=== PATIENT | male | born 1960 | race Caucasian/White ===

== ENCOUNTER 2019-02-06 15:59 | Inpatient (IN) | payer OTHER ==
[~2019-02-06] VITALS: Ht 182.9 cm; Wt 89.3 kg
[2019-02-06 16:10] LABS: Chloride (POC) 92 mmol/L (98-108); Creatinine (POC) 1.3 mg/dL (0.8-1.3); Glucose (ISTAT POC) 109 mg/dL (70-99); Sodium (POC) 127 mmol/L (135-148); Total CO2 (POC) 28 mmol/L (21-32)
--- NOTE | 2019-02-06 17:58 | NUR ---
ADMIT TO ICU 12, VIA BED, FROM [facility]. EMS BROUGHT PATIENT TO THE ER FOR PERSISTENT N/V, WEAKNESS AND CHEST PAIN INTERMITTENTLY THE PAST 3 DAYS; PATIENT ASSESSED BY ER PHYSICIAN AND CARDIO-INTERVENTIONALIST; DIRECTLY TAKEN TO HEART CENTER. STENT PLACED TO LAD; REMAINS ON AGGRASTAT DRIP AT 15ML/HR AND TO RECEIVE LITER OF NS. POC IS TO TAKE PATIENT, IN AM, FOR REPEAT ANGIOGRAM; DR. MARTÍNEZ HOPING THAT VESSEL WILL GET BETTER FLOW (WAS 100% OCCLUDED). PATIENT AND FAMILY ORIENTED TO ROOM AND PROTOCOLS. PATIENT VOIDED 350ML OF LT YELLOW URINE. UNDERLYING NAUSEA BUT NO CURRENT CHESTPAIN.
--- NOTE | 2019-02-06 18:50 | NUR ---
PORTABLE CXR DONE.
--- NOTE | 2019-02-06 18:55 | NUR ---
DR. IRVIN IN TO DISCUSS POC, ETC WITH PATIENT WELL FAMILY. PATIENT MAY EAT TIL 2400 THEN DIET TO REDUCE TO CL'S AND AT 0800 PO MEDS WITH SIPS WATER. TO HAVE ANOTHER ANGIOGRAM. CURRENTLY TR BAND SITE INTACT; CUFF INFLATED WITH 10CC/AIR; ARMBOARD IN PLACE. WILL REPORT TO ONCOMING RN.
--- NOTE | 2019-02-06 19:30 | NUR ---
[place] of Care: Patient alert and oriented x4, sitting upright in bed visiting with family at bedside. Denies chest pain, pressure, SOB, or dyspnea at this time. O2-96-98% on RA, VSS. Heart rhythm shows NSR-SIT, rate 90's-105. Peripheral IV's x2 patent and intact. NS infusing at 200ml/hr, x1 liter only. Agrastat gtt infusing at 15ml/hr at shift change, but this order D/C'd in the EMAR. Call placed to Dr. Gupta to confirm Agrastat gtt. Received orders to keep Agrastat gtt infusing throughout shift, D/c subcutaneous heparin, and for GI cocktail q6 prn as patient is complaining of GERD/reflux pain/discomfort. Rt radial TR band in place, no s/s of bleeding/hematoma noted. Rt hand color, temp, sensation wnl, armboard in place. Voiding using urinal in bed without difficulty. Will continue to monitor for pain, safety, comfort.
--- NOTE | 2019-02-06 22:27 | NUR ---
Afibb/RVR: At approx 2215hr patient's heart rhythm went from SIT, rate 100-105 to A-fibb/RVR, rate 140's-170's. Patient remains asymptomatic, denies chest pain/pressure, dyspnea/SOB, and he is not diapharetic. BP remains stable with systolic in the 140's. Heart rhythm changes from SIT to A-fibb RVR every few minutes. Vagal maneuvers ineffective. EKG obtained and call placed to Dr. Gupta. Received orders for Amiodarone 150mg IV x1, followed by Amiodarone gtt 1mg/min x6hr, then 0.5mg/min x18hr. Awaiting arrival of Amiodarone from pharmacy at this time. Patient remains stable and asymptomatic.
[2019-02-07 04:13] LABS: BASOPHILS ABSOLUTE AUTO 0.02 K/mm3 (0.00-0.23); BASOPHILS PERCENT AUTO 0 % (0-2); EOSINOPHILS ABSOLUTE AUTO 0.01 K/mm3 (0.00-0.68); EOSINOPHILS PERCENT AUTO 0 % (0-6); Hematocrit 45.3 % (37.0-53.0); Hemoglobin 15.9 g/dL (13.5-17.5); IMMATURE GRAN ABSOLUTE AUTO 0.09 K/mm3 (0.00-0.10); IMMATURE GRAN PERCENT AUTO 1 % (0-1); LYMPHOCYTES ABSOLUTE AUTO 0.88 K/mm3 (0.84-5.20); LYMPHOCYTES PERCENT AUTO 6 % (21-46); MONOCYTES PERCENT AUTO 9 % (4-13); Mean Corpuscular HGB 30.9 pg (26.0-34.0); Mean Corpuscular HGB Conc 35.1 g/dL (31.5-36.5); Mean Corpuscular Volume 88 fL (80-100); Mean Platelet Volume 11.3 fL (9.1-12.4); NEUTROPHILS ABSOLUTE AUTO 12.72 K/mm3 (1.96-9.15); NEUTROPHILS PERCENT AUTO 85 % (41-73); Platelet Count 251 K/mm3 (150-400); RDW Coefficient Variation 13.1 % (11.7-14.2); RDW Standard Deviation 42.5 fL (35.1-46.3); Red Blood Cell Count 5.14 M/mm3 (4.30-5.90); White Blood Cell Count 15.02 K/mm3 (4.00-11.30)
[2019-02-07 04:27] LABS: Anion Gap 7 mmol/L (6-16); Blood Urea Nitrogen 20 mg/dL (8-24); Bun/Creatinine Ratio 22.5 (12.0-20.0); CO2, Blood 25 mmol/L (21-32); Calcium, Blood 7.9 mg/dL (8.5-10.1); Chloride, Blood 102 mmol/L (98-108); Creatinine, Blood 0.89 mg/dL (0.60-1.20); Glomerular Filtration Rate >60 (60-); Glucose, Blood 119 mg/dL (70-99); Potassium, Blood 3.9 mmol/L (3.5-5.5); Sodium, Blood 134 mmol/L (136-145)
--- NOTE | 2019-02-07 06:19 | NUR ---
Shift Summary: Patient slept on/off throughout remainder of shift. C/o epigastric pain with deep inhalation and reflux burning pain, effectively managed with x2 doses of GI cocktail. Denies any other pain or discomfort. Denies dyspnea/SOB, O2-96-98% on RA. Continues on Amiodarone gtt throughout remainder of shift. Heart rhythm converted back to NSR-SIT 80's-110 at approx 0030hr, BP remains stable. Rt radial TR band removed, clear occlusive dressing applied, arm-board remains in place. Rt radial site remains wnl, no s/s of bleeding or hematoma, peripheral limb wnl. Voiding in bed using urinal without difficulty. Calm and cooperative with staff, sleeping at this time. Will continue to monitor until report to day shift RN.
--- NOTE | 2019-02-07 09:01 | NUR ---
CARE ASSUMED, ASSESSMENT COMPLETED. AMIO INFUSING AT 0.5MCG/MIN, BRILLINTA AT 15ML/HR PER ORDERS. HR 80'S - 90'S SINUS, VSS. PT C/O SHARP MIDSTERNAL CP 8/10 RADIATING UP THROAT WITH NAUSEA AND DIAPHORESIS. NITRO GTT INFUSION INITIATED AT 10MCG/MIN, PAIN DECREASED TO 2/10 WITHIN 5 MINUTES, THEN RESOLVED, PT DENIES NAUSEA AND DIAPHORESIS. BP REMAINS STABLE WITH NITRO, RATE UNCHANGED. FAMILY IN TO VISIT, IN TO ASSESS. ECHO DONE. 0920: PT HAD A SHORT EPISODE OF AFIB, HR 100-135, THEN CONVERTED BACK TO SINUS HR 90'S, PT DENIED CHEST PAIN OR PALPITATIONS DURING THIS TIME. HR REMAINS IRREGULAR AT TIMES. AMIO AND NITRO INFUSING, PT DENIES CHEST PAIN.
--- NOTE | 2019-02-07 09:43 | NUR ---
SPOKE WITH DR. IRVIN, NEW ORDERS RECEIVED. AGGRESTAT OFF AT THIS TIME. PT SITTING UP IN BED EATING BREAKFAST, DENIES CHEST PAIN/NAUSEA, DENIES C/O. FAMILY AT BEDSIDE AND UPDATED ON PLAN OF CARE.
[2019-02-07 10:14] LABS: Creatine Kinase MB 8.5 ng/mL (0.0-3.6); Creatine Kinase MB Index 2.5 (0.0-4.0)
[2019-02-07 10:42] LABS: Troponin I 13.6 ng/mL (0.000-0.040)
--- NOTE | 2019-02-07 11:42 | NUR ---
Upon receiving a request for spiritual care from an admit refererral, I visited patient. 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 When I offered prayer, patient asked that I pray in my mind as I leave. I left and gladly provided silent prayer on my way out.
--- NOTE | 2019-02-07 11:53 | NUR ---
PT RESTING IN BED, HR 90'S SINUS, IRREGULAR AT TIMES, OTHER VSS. PT DENIES NEED FOR GI COCKTAIL AT THIS TIME, STATES HE WILL WAIT UNTIL HE GETS HICCUPS AGAIN. DENIES CHEST PAIN/PRESSURE, SOB, NAUSEA, OR DIAPHORESIS.
--- NOTE | 2019-02-07 12:04 | NUR ---
Echocardiogram completed.
--- NOTE | 2019-02-07 14:29 | NUR ---
NITRO PASTE APPLIED, NITRO GTT OFF, BP STABLE. HR 90'S NSR. DR. LOPEZ AT BEDSIDE DISCUSSING CARE WITH PT AND HIS FAMILY. PT DENIES CHEST PAIN OR NAUSEA AT THIS TIME, INTERMITTENT HICCUPS AND INDIGESTION REMAIN.
--- NOTE | 2019-02-07 17:58 | NUR ---
1615: HR REMAINS 90'S -100 SINUS WITH NITRO PASTE, NITRO GTT REMAINS OFF, BP STABLE. PT'S FAMILY AT BEDSIDE, PT SITTING UP IN BED VISITING, COLOR IS GOOD, PT DENIES CHEST PAIN/PRESSURE/SOB/DIAPHORESIS. AMIO INFUSING PER ORDERS, PT IN IRREGULAR SINUS RHYTHM. PT DENIES NEEDS AT THIS TIME. 1800: PT C/O HICCUPS AND INDIGESTION, BOTH SYMPTOMS INSTANTLY RELIEVED WITH GI COCKTAIL, PT DENIES CP/PRESSURE. VSS, HR SINUS 90'S, IRREGULAR, NO AFIB NOTED SINCE BRIEF EPISODE THIS MORNING IN WHICH PT WAS ASYMPTOMATIC. PT SITTING UP IN BED EATING DINNER AT THIS TIME, DENIES NAUSEA OR INDIGESTION.
--- NOTE | 2019-02-07 19:15 | NUR ---
ASSUMED CARE OF PT, BEDSIDE REPORT RECEIVED. PT IS RESTING QUIETLY RECLINING IN BED VISITING WITH MULTIPLE FAMILY MEMBERS AT BEDSIDE. PT DENIES NEEDS AT THIS TIME. DENIES CP/PRESSURE, DENIES SOB/DYSPNEA, DENIES N/V, DENIES NUMBNESS/TINGLING. IS ALERT AND ORIENTED AND SPEAKING IN FULL SENTANCES, LUNGS CLEAR THROUGHOUT, MAINTAINING SATS ON ROOM AIR, NO INCREASED WORK OF BREATHING IS NOTED. SINUS RHYTHM RATE 90S WITH SINUS ARRHYTHMIA, S1, S2 PRESENT, NO EDEMA, SKIN IS PWD, RIGHT RADIAL ACCESS SITE REMAINS STABLE AT THIS TIME, PT COMPLIANT WITH MOVEMENT RESTRICTIONS, PULSES FULL X 4 EXTREMITIES WITH BRISK CAP REFILL. ABD SOFT, HYPERACTIVE BOWEL TONES ARE NOTED, NO GRIMACING/GUARDING WITH PALPATION, PT REPORTS IMPROVEMENT IN HICCUPS AT THIS TIME. IV ACCESS NOTED, 20 GAUGE LEFT FOREARM AND 18 GAUGE TO RIGHT AC, AMIODARONE AT 0.5 MG/MIN AT THIS TIME, NITRO PASTE NOTED TO LEFT UPPER CHEST WALL.
--- NOTE | 2019-02-07 19:22 | NUR ---
PT TOLERATED DINNER WELL AFTER GI COCKTAIL, NO C/O INDIGESTION OR HICCUPS AT THIS TIME, NO CHEST PAIN/PRESSURE. VSS, HR 90'S SINUS, AMIO INFUSING PER ORDERS, NO OTHER GTTS. PT PLEASANT AND COOPERATIVE T/O SHIFT, STATES HE IS FEELING BETTER THIS EVENING. PT C/O MID CHEST PAIN WITH DEEP BREATHING OFF AND ON T/O SHIFT, STATES THIS PAIN HAS IMPROVED THIS EVENING AND IS MINIMAL. AWARE OF PAIN, STATES POSSIBLE PERICARDITIS, NO NEW ORDERS. RIGHT RADIAL ACCESS SITE WNL, WRIST IMMOBILIZER REMAINS IN PLACE. REPORT TO ONCOMING SHIFT.
--- NOTE | 2019-02-07 20:43 | NUR ---
CHEST PAIN CALLED TO PT'S ROOM FOR NEW ONSET OF RIGHT UPPER CHEST PAIN, PT POINTS TO AREA APPROXIMATELY 3RD INTERCOSTAL SPACE MIDCLAVICULAR LINE. STATES THAT PAIN IS "MORE DISCOMFORT" THAN PAIN, STATES THAT IT IS DIFFERENT IN NATURE THAN PREV DISCOMFORT, HE BELIEVES THAT THIS IS GAS PAIN RELATED TO INCREASED PO INTAKE AT DINNER HOWEVER HE ALSO ADMITS TO SOME ACCOMPANYING NAUSEA AND DIAPHORESIS, SKIN REMAINS PINK AND WARM AT THIS TIME, VITALS REMAIN STABLE. PT REPORTS RESOLUTION OF SYMPTOMS WITH COMPLETION OF ASSESSMENT AND PRIOR TO MEDICATION ADMINISTRATION. WILL CONT TO MONITOR.
--- NOTE | 2019-02-07 21:00 | NUR ---
PT DENIES CURRENT CHEST PAIN, AGAIN STATES THAT PAIN WAS DIFFERENT IN NATURE THAN PRIOR EPISODES OF CHEST PAIN AND IN A DIFFERENT LOCATION. AGAIN DESCRIBES HIS PAIN SHARP IN NATURE AND THAT HE "COULD PINPOINT IT" WILL CONTINUE TO MONITOR.
[2019-02-08 06:23] LABS: BASOPHILS ABSOLUTE AUTO 0.03 K/mm3 (0.00-0.23); BASOPHILS PERCENT AUTO 0 % (0-2); EOSINOPHILS ABSOLUTE AUTO 0.02 K/mm3 (0.00-0.68); EOSINOPHILS PERCENT AUTO 0 % (0-6); Hematocrit 41.6 % (37.0-53.0); Hemoglobin 14.1 g/dL (13.5-17.5); IMMATURE GRAN ABSOLUTE AUTO 0.04 K/mm3 (0.00-0.10); IMMATURE GRAN PERCENT AUTO 0 % (0-1); LYMPHOCYTES ABSOLUTE AUTO 1.02 K/mm3 (0.84-5.20); LYMPHOCYTES PERCENT AUTO 10 % (21-46); MONOCYTES ABSOLUTE AUTO 0.99 K/mm3 (0.16-1.47); MONOCYTES PERCENT AUTO 10 % (4-13); Mean Corpuscular HGB 30.5 pg (26.0-34.0); Mean Corpuscular HGB Conc 33.9 g/dL (31.5-36.5); Mean Corpuscular Volume 90 fL (80-100); Mean Platelet Volume 10.9 fL (9.1-12.4); NEUTROPHILS ABSOLUTE AUTO 7.86 K/mm3 (1.96-9.15); NEUTROPHILS PERCENT AUTO 79 % (41-73); Platelet Count 228 K/mm3 (150-400); RDW Coefficient Variation 13.2 % (11.7-14.2); RDW Standard Deviation 43.3 fL (35.1-46.3); Red Blood Cell Count 4.63 M/mm3 (4.30-5.90); White Blood Cell Count 9.96 K/mm3 (4.00-11.30)
--- NOTE | 2019-02-08 06:26 | NUR ---
PT RESTS QUIETLY THIS SHIFT, REPORTS THIS AM THAT HE FEELS LIKE HE SLEPT WELL. HE STATES THAT HE IS FEELING MUCH IMPROVED FROM YESTERDAY AND THAT HE IS STARTING TO FEEL HUNGRY AND LOOKING FORWARD TO BREAKFAST. HE DID COMPLAIN OF PAIN X 1 THIS SHIFT TO RIGHT CHEST AT APPROX 3RD INTERCOSTAL SPACE MIDCLAVICULAR LINE THAT HE STATED WAS SHARP IN NATURE AND UNLIKE HIS PRIOR EPISODES OF PAIN HE WAS ABLE TO "PINPOINT" IT. THIS PAIN LASTED LESS THAN 5 MINUTES FROM ONSET AND HE HAS NOT ADMITTED TO ANY SIMILAR EPISODES FOLLOWING THAT THIS SHIFT. HIS LUNGS REMAIN CLEAR THROUGHOUT AND IS MAINTAINING SATS ON ROOM AIR, NO INCREASED WORK OF BREATHING HAS BEEN NOTED THIS SHIFT AND PT CONTINUES TO DENY ANY DYSPNEA. CONTINUES IN SINUS RHYTHM WITH SINUS ARRHYTHMIA, INFREQUENT PVCS NOTED THIS SHIFT, RATE CONTINUES 80-90S, PULSES REMAIN FULL X 4, NO EDEMA, PRESSURE MAINTAINING. ABD SOFT, NONTENDER TO PALP, ACTIVE BOWEL TONES CONTINUE, PT STATES THAT HE HAS NOT HAD ANY HICCUPS FOR APPROXIMATELY 8 HOURS OF THIS TIME. VOIDS CLEAR YELLOW URINE WITHOUT DIFFICULTY IN URINAL. IV TO RIGHT AC WAS NOTED INFILTRATED EARLY THIS SHIFT, NEW 20 GAUGE TO LEFT FOREARM AT 1ST ATTEMPT WITH AM LABS AND PT TOLERATED WELL. UP TO CHAIR THIS AM WITH STEADY GAIT AND TOLERATING WELL.
[2019-02-08 06:37] LABS: Anion Gap 9 mmol/L (6-16); Blood Urea Nitrogen 16 mg/dL (8-24); Bun/Creatinine Ratio 15.4 (12.0-20.0); CO2, Blood 26 mmol/L (21-32); Calcium, Blood 8.1 mg/dL (8.5-10.1); Chloride, Blood 104 mmol/L (98-108); Creatinine, Blood 1.04 mg/dL (0.60-1.20); Glomerular Filtration Rate >60 (60-); Glucose, Blood 98 mg/dL (70-99); Potassium, Blood 3.8 mmol/L (3.5-5.5); Sodium, Blood 139 mmol/L (136-145)
[2019-02-08 06:55] LABS: CHOL/HDL RATIO 3.3; Cholesterol 147 mg/dL (50-200); HDL Cholesterol 45 mg/dL (>39); LDL/HDL RATIO 1.7; Low Density Lipoprotein Chol 78 mg/dL (0-110); Triglycerides 118 mg/dL (30-160); Very Low Density Lipoprot Chol 23 mg/dL (6-32)
--- NOTE | 2019-02-08 07:21 | NUR ---
ASSUMED CARE: PT SITTING UPRIGHT IN CHAIR. DENIES CHEST PAIN, C/O HICCUPS. REQUEST FOR GI COCKTAIL FROM PHARMACY. ST ELEVATION NOTED ON TELE, HR IN 90S. DENIES FURTHER NEEDS OR CONCERNS AT THIS TIME.
--- NOTE | 2019-02-08 09:51 | NUR ---
CALL TO DR BACH FOR FURTHER INSTRUCTIONS ON PT. STATES HE WILL BE BY TO SEE PT SHORTLY. PT AND LICENSED MENTAL HEALTH PROFESSIONAL AWARE
--- NOTE | 2019-02-08 11:30 | NUR ---
DR BACH HERE TO SEE PT. AWARE THAT PT HAD INCREASE IN ST ELEVATIONS WHEN ROLLING TO RIGHT SIDE. ALSO AWARE THAT PT HAD BRIEF PERIOD OF CP THAT SELF RESOLVED.
[2019-02-08] MEDS ORDERED: ELIQUIS2.5 MG PO (11:44)
[2019-02-08] MEDS ORDERED: Amiodarone HCl200 MG PO (11:44)
[2019-02-08] MEDS ORDERED: ATOR40TA PO (11:44)
[2019-02-08] MEDS ORDERED: PANT40 PO (11:45)
[2019-02-08] MEDS ORDERED: Isosorbide Mono30 MG PO (11:45)
[2019-02-08] MEDS ORDERED: TICA90TA PO (11:46)
[2019-02-08] MEDS ORDERED: Aspirin EC81 MG PO (11:46)
[2019-02-08] MEDS ORDERED: METOPROLOL SUCC25 MG PO (11:52)
--- NOTE | 2019-02-08 12:58 | NUR ---
PT DISCHARGED HOME. INSTRUCTED ON PRECAUTIONS WITH BLOOD THINNERS INCLUDING INCREASED BLEEDING AND BRUISING WELL SEEKING MEDICAL ATTENTION FOR HEAD INJURIES. INSTRUCTED ON FOLLOWING UP WITH PHYSICIANS AND TO EXPECT A CALL FROM [facility]. MEDS FAXED TO [facility] [employer]. IV'S DC'D WNL. DENIED FURTHER QUESTIONS OR CONCERNS. AMBULATORY UPON DC AND ESCORTED OUT BY HOSPITAL STAFF
== END 2019-02-08 12:45 | disposition home or self-care (01) | DRG 247 ==
LOC: ER 15:59 → ICUW 16:00
PROVIDERS: Emergency Medicine; ADMIT Internal Medicine Interventional Cardiology
PROC: 4A023N7 Measurement of Cardiac Sampling and Pressure, Left Heart, Percutaneous Approach (ICD-10-PCS; principal; 2019-02-06)
PROC: B211YZZ Fluoroscopy of Multiple Coronary Arteries using Other Contrast (ICD-10-PCS; 2019-02-06)
PROC: 027034Z Dilation of Coronary Artery, One Artery with Drug-eluting Intraluminal Device, Percutaneous Approach (ICD-10-PCS; 2019-02-06)
DX: I21.09 ST elevation (STEMI) myocardial infarction involving other coronary artery of anterior wall (principal); I50.20 Unspecified systolic (congestive) heart failure; I10 Essential (primary) hypertension; I48.91 Unspecified atrial fibrillation; F17.210 Nicotine dependence, cigarettes, uncomplicated
CPT/HCPCS: 36415; 71045; 76937; 80047; 80048; 80061; 82550; 82553; 83036; 84484; 85014; 85025; 85347; 93005; 93010; 93306; 93454; 96374; 99152; 99153; 99285-25; C1725; C1757; C1769; C1874; C1887; C1894; C9606; J0282; J1644; J2250; J2405; J3010; J3246; J7030; J7060; Q9967

== ENCOUNTER → 2019-02-06 | Outpatient (CLI) | payer OTHER ==
[~2019-02-06] MED LIST: ATOR40TA PO; Amiodarone HCl200 MG PO; Aspirin EC81 MG PO; CARV6.25 PO; ELIQUIS2.5 MG PO; ENTRESTO 24 MG1 EACH PO; FURO40 PO; Isosorbide Mono30 MG PO; LIDOCAINE VISCOUS 2% PO; LORA1 PO; METOPROLOL SUCC25 MG PO; NITR.4SL SL; PANT40 PO; POTA10T PO; Pacerone400 MG PO; SPIR25 PO; TICA90TA PO
[2019-02-06 15:06] LABS: BASOPHILS ABSOLUTE AUTO 0.04 K/mm3 (0.00-0.23); BASOPHILS PERCENT AUTO 0 % (0-2); EOSINOPHILS ABSOLUTE AUTO 0.01 K/mm3 (0.00-0.68); EOSINOPHILS PERCENT AUTO 0 % (0-6); Hemoglobin 19.4 g/dL (13.5-17.5); IMMATURE GRAN ABSOLUTE AUTO 0.09 K/mm3 (0.00-0.10); IMMATURE GRAN PERCENT AUTO 1 % (0-1); LYMPHOCYTES ABSOLUTE AUTO 1.39 K/mm3 (0.84-5.20); LYMPHOCYTES PERCENT AUTO 8 % (21-46); MONOCYTES ABSOLUTE AUTO 1.52 K/mm3 (0.16-1.47); MONOCYTES PERCENT AUTO 8 % (4-13); Mean Corpuscular HGB 30.6 pg (26.0-34.0); Mean Corpuscular Volume 88 fL (80-100); NEUTROPHILS ABSOLUTE AUTO 15.05 K/mm3 (1.96-9.15); NEUTROPHILS PERCENT AUTO 83 % (41-73); Platelet Count 296 K/mm3 (150-400); RDW Coefficient Variation 13.5 % (11.7-14.2); RDW Standard Deviation 42.6 fL (35.1-46.3); Red Blood Cell Count 6.34 M/mm3 (4.30-5.90)
[2019-02-06 15:28] LABS: Hematocrit 55.5 % (37.0-53.0)
[2019-02-06 15:32] LABS: Albumin, Blood 3.6 g/dL (3.4-5.0); Albumin/Globulin Ratio 0.8 (0.8-1.8); Bilirubin, Total 1.7 mg/dL (0.1-1.0); Bun/Creatinine Ratio 18.7 (12.0-20.0); Calcium, Blood 9.3 mg/dL (8.5-10.1); Creatinine, Blood 1.34 mg/dL (0.60-1.20); Globulin, Blood 4.3 g/dL (2.2-4.0); Potassium, Blood 4.3 mmol/L (3.5-5.5); Total Protein, Blood 7.9 g/dL (6.4-8.2)
[2019-02-06 15:33] LABS: Troponin I 17.013 ng/mL (0.000-0.040)
== END | disposition home or self-care (01) ==
LOC: LAB EV 15:00 → LAB SHORT 15:00
PROVIDERS: Family Medicine
DX: K21.9 Gastro-esophageal reflux disease without esophagitis (principal); R11.2 Nausea with vomiting, unspecified
CPT/HCPCS: 80053; 83690; 84484; 85025

== ENCOUNTER 2019-02-11 16:50 | Inpatient (IN) | payer OTHER ==
[~2019-02-11] VITALS: Ht 182.9 cm; Wt 83.3 kg
[~2019-02-11 16:50] MED LIST changes: -CARV6.25 PO; -ENTRESTO 24 MG1 EACH PO; -FURO40 PO; -LIDOCAINE VISCOUS 2% PO; -LORA1 PO; -NITR.4SL SL; -POTA10T PO; -Pacerone400 MG PO; -SPIR25 PO
[2019-02-11 17:15] LABS: Calcium, Ionized (POC) 1.08 mmol/L (1.10-1.46); Chloride (POC) 100 mmol/L (98-108); Creatinine (POC) 1.1 mg/dL (0.8-1.3); Glucose (ISTAT POC) 112 mg/dL (70-99); Potassium (POC) 3.5 mmol/L (3.5-5.5); Sodium (POC) 135 mmol/L (135-148); Total CO2 (POC) 25 mmol/L (21-32)
[2019-02-11 17:17] LABS: BASOPHILS ABSOLUTE AUTO 0.03 K/mm3 (0.00-0.23); BASOPHILS PERCENT AUTO 0 % (0-2); EOSINOPHILS ABSOLUTE AUTO 0.12 K/mm3 (0.00-0.68); EOSINOPHILS PERCENT AUTO 1 % (0-6); Hematocrit 43.8 % (37.0-53.0); Hemoglobin 14.7 g/dL (13.5-17.5); IMMATURE GRAN ABSOLUTE AUTO 0.08 K/mm3 (0.00-0.10); IMMATURE GRAN PERCENT AUTO 1 % (0-1); LYMPHOCYTES ABSOLUTE AUTO 1.39 K/mm3 (0.84-5.20); LYMPHOCYTES PERCENT AUTO 14 % (21-46); MONOCYTES ABSOLUTE AUTO 0.79 K/mm3 (0.16-1.47); MONOCYTES PERCENT AUTO 8 % (4-13); Mean Corpuscular HGB Conc 33.6 g/dL (31.5-36.5); Mean Corpuscular Volume 92 fL (80-100); Mean Platelet Volume 10.7 fL (9.1-12.4); NEUTROPHILS PERCENT AUTO 76 % (41-73); Platelet Count 287 K/mm3 (150-400); RDW Coefficient Variation 12.7 % (11.7-14.2); RDW Standard Deviation 43.7 fL (35.1-46.3); Red Blood Cell Count 4.74 M/mm3 (4.30-5.90); White Blood Cell Count 10.01 K/mm3 (4.00-11.30)
[2019-02-11 17:42] LABS: Alanine Aminotransfer (ALT/SGP 38 U/L (12-78); Albumin, Blood 3.2 g/dL (3.4-5.0); Albumin/Globulin Ratio 0.8 (0.8-1.8); Alk Phos 98 U/L (50-136); Anion Gap 4 mmol/L (6-16); Aspartate Aminotrans (AST/SGOT 28 U/L (12-37); Bilirubin, Total 0.9 mg/dL (0.1-1.0); Blood Urea Nitrogen 14 mg/dL (8-24); Bun/Creatinine Ratio 13.3 (12.0-20.0); CO2, Blood 28 mmol/L (21-32); Calcium, Blood 8.6 mg/dL (8.5-10.1); Chloride, Blood 103 mmol/L (98-108); Creatinine, Blood 1.05 mg/dL (0.60-1.20); Globulin, Blood 3.8 g/dL (2.2-4.0); Glomerular Filtration Rate >60 (60-); Glucose, Blood 109 mg/dL (70-99); Potassium, Blood 3.6 mmol/L (3.5-5.5); Sodium, Blood 135 mmol/L (136-145)
[2019-02-11] MEDS ORDERED: NITR.4SL SL (18:31)
[2019-02-11] MEDS ORDERED: LIDOCAINE VISCOUS 2% PO (18:35)
[2019-02-12 01:27] LABS: Hemoglobin 14.1 g/dL (13.5-17.5); Mean Corpuscular HGB 30.8 pg (26.0-34.0); Mean Corpuscular HGB Conc 33.6 g/dL (31.5-36.5); Mean Corpuscular Volume 92 fL (80-100); Mean Platelet Volume 10.6 fL (9.1-12.4); Platelet Count 291 K/mm3 (150-400); RDW Coefficient Variation 12.8 % (11.7-14.2); RDW Standard Deviation 42.7 fL (35.1-46.3); Red Blood Cell Count 4.58 M/mm3 (4.30-5.90); White Blood Cell Count 8.94 K/mm3 (4.00-11.30)
[2019-02-12 01:43] LABS: Anion Gap 8 mmol/L (6-16); Blood Urea Nitrogen 14 mg/dL (8-24); Bun/Creatinine Ratio 13.6 (12.0-20.0); CO2, Blood 26 mmol/L (21-32); Calcium, Blood 8.2 mg/dL (8.5-10.1); Chloride, Blood 108 mmol/L (98-108); Creatinine, Blood 1.03 mg/dL (0.60-1.20); Glomerular Filtration Rate >60 (60-); Glucose, Blood 109 mg/dL (70-99); Magnesium, Blood 2.1 mg/dL (1.6-2.4); Phosphorus, Blood 3.3 mg/dL (2.5-4.9); Potassium, Blood 3.8 mmol/L (3.5-5.5); Sodium, Blood 142 mmol/L (136-145)
[2019-02-12 01:51] LABS: Creatine Kinase MB 1.6 ng/mL (0.0-3.6); Creatine Kinase MB Index 1.1 (0.0-4.0)
[2019-02-12 01:59] LABS: Troponin I 3.53 ng/mL (0.000-0.040)
--- NOTE | 2019-02-12 05:15 | NUR ---
SHIFT SUMMARY PT ARRIVED TO UNIT FROM ED ON STRETCHER. PT ABLE TO STAND AND TRANSFER TO HOSP BED W/O ASSIST. PT REPORTED SOME CP UPON ARRIVAL. PT NOTED TO HAVE 1INCH NITRO PASTE ON R CHEST. AFTER REPOSITIONING PT REPORTS PAIN UNDER CONTROL AGAIN. RESP EVEN UNLBOARED ON RA W/ SATS >92%. PT IS INDEPENDENT IN ROOM, USES CALL LIGHT APPROPRIATELY. DENIES NEEDS. REPORTS NO CP SINCE ADIMT. PT HAS BEEN ABLE TO SLEEP WELL T/O NIGHT. PT HAS 2 PIV'S THAT ARE SL. CARDIAC CONSULT TO SEE PT IN AM. CALL LIGHT IN REACH.
[2019-02-12 09:42] LABS: Creatine Kinase MB 1.5 ng/mL (0.0-3.6); Creatine Kinase MB Index 1.1 (0.0-4.0)
[2019-02-12 10:15] LABS: Troponin I 2.7 ng/mL (0.000-0.040)
--- NOTE | 2019-02-12 13:47 | NUR ---
ASSUMED CARE: RECEIVED REPORT FROM SAUNDRA FLORES RN. PT SITTING UP IN THE BED APPEARS SLIGHTLY CONFUSED TO WHEN AND WHERE THE PROCEDURE OF THE ANGIOGRAM IS GOING TO BE. PT REMINDED BY SAUNDRA HARRIS OF PT SIGNING THE CONCENT FORM AFTER BEING FULLING EDUCATED AND THE ANGIOGRAM WILL BE DONE IN THE MORNING AND PT AGREED. APPEARS THOUGH PT MAY BE A BIT FORGETFUL. WILL CONTINUE TO MONITOR AND ASSESS FURTHER.
--- NOTE | 2019-02-12 17:22 | NUR ---
SHIFT SUMMARY: NO ACUTE DISTRESS NOTED T/O THE SHIFT. PT HAS REMAINED IN BED WITH THE HEAD OF THE BED SLIGHTLY ELIVATED. PT WAS ABLE TO GET UP TO THE SHOWER THIS SHIFT WITH A SBA TO THE BATHROOM. PT DID NOT APPEAR TO HAVE ANY DISTRESS WHILE SHOWERING OR AMBULATING TO THE SHOWER. FAMILY HAVE REMAINED AT BEDSIDE T/O MOST OF THE DAY. BLOOD PRESSURE HAS BEEN ELAVATED T/O THE DAY, DOCTORS ARE AWARE AND CHANGES HAVE BEEN MADE. WILL CONTINUE TO MONITOR AND REPORT TO ONCOMING RN.
--- NOTE | 2019-02-12 18:17 | NUR ---
ELIVATED BP: PT BLOOD PRESSURE IS NOTED TO BE ELIVATED AT 190/[address] ELIVATION WAS NOTED TO BE INCREASED BY ANOTHER 0.[address] ELIVATION A TOTAL OF 0.12. DR MILAGRO BENZ AND HE CALLED BACK WITHIN A MINUTE. RECEIVED NEW ORDERS FOR LASIX IV AND TO CALL WITHIN ONE HOUR TO GIVE AN UPDATE ON BLOOD PRESSURE.
--- NOTE | 2019-02-12 19:45 | NUR ---
ASSUMED CARE OF PT AT 1915. REPORT RECEIVED. PT PRESENTS SITTING UPRIGHT IN BEDSIDE RECLINER. PT ALERT AND ORIENTED. PLEASANT AND COOPERATIVE WITH CARE AND ASSESSMENT. DENIES COMPLAINTS OF PAIN OR DISTRESS AT THIS TIME. VOIDING Q.S CLEAR YELLOW URINE. HAS RECEIVED DIURETIC THERAPY WITH GOOD RESULTS. BLOOD PRESSURE CURRENTLY AT 139/89 WITH HEART RATE 82. CALL MADE TO DR REBOLLAR FOR UPDATE PER MD REQUEST. AWAITING RETURN CALL. PT VISITING WITH GUESTS IN ROOM. GOOD INTERACTION NOTED.
--- NOTE | 2019-02-12 20:13 | NUR ---
SPOKE WITH DR REBOLLAR PER TELEPHONE. ORDERS RECEIVED. UPDATE GIVEN. WILL CONTINUE TO MONITOR PT. WILL REVIEW CHART AND PLAN OF CARE FOR THIS PT.
--- NOTE | 2019-02-12 23:00 | NUR ---
PT RESTING COMFORTABLY IN BED WITH NO COMPLAINTS OF CHEST PAIN OR PRESSURE. PER CITY MAIL CARRIER, PT'S HEART RHYTHM HAS NOT CHANGED. NO CHANGES IN ST ELEVATION. BLOOD PRESSURES REMAIN WNL AT THIS TIME. WILL CONTINUE TO MONITOR.
--- NOTE | 2019-02-13 00:46 | NUR ---
PT CALLS THIS RN TO ROOM, STATES THAT HE IS FELT "STRANGE" AND HE WAS COLD. EXPRESSED THAT HE GOT SWEATY AND THEN BECAME COLD. THIS OCCURRED PRIOR TO MIDNIGHT. NO CARDIAC RHYTHM CHANGES NOTED AT THAT TIME. DID NOTICE THAT PT'S BLOOD PRESSURES HAD DROPPED TO 91 SYSTOLICALLY. HAVE CHANGED CYCLE BLOOD PRESSURES TO Q 15 MINUTES TO MONITOR PRESSURE CHANGES. CURRENTLY BLOOD PRESSURE 133/76. NO CHEST PAIN OR PRESSURE. PT STATES HE IS FEELING BETTER AT THIS TIME. DOES DEMONSTRATE THAT HE IS SOMEWHAT FEARFUL TO GO TO SLEEP AFTER THIS. REASSURED PT, WILL CONTINUE TO MONITOR.
--- NOTE | 2019-02-13 01:59 | NUR ---
PT STATES HE IS FEELING MUCH BETTER. NO FURTHER COMPLAINTS. STATES HE IS ABLE TO TAKE SHORT NAPS. WILL CONTINUE TO MONITOR PT.
--- NOTE | 2019-02-13 04:24 | NUR ---
PT HAS ANOTHER EPISODE OF SWEATING, AND FEELING COLD AFTERWARDS. NO CHANGES IN CARDIAC RHYTHM PER MONITOR. BLOOD PRESSURES REMAIN WNL. NO CHEST PAIN OR PRESSURE. WARM BLANKETS PROVIDED FROM [facility]. PT STATES THIS HELPS. WILL CONTINUE TO MONITOR.
[2019-02-13 05:01] LABS: Anion Gap 7 mmol/L (6-16); Blood Urea Nitrogen 15 mg/dL (8-24); Bun/Creatinine Ratio 14.3 (12.0-20.0); CO2, Blood 29 mmol/L (21-32); Calcium, Blood 8.5 mg/dL (8.5-10.1); Chloride, Blood 103 mmol/L (98-108); Creatinine, Blood 1.05 mg/dL (0.60-1.20); Glomerular Filtration Rate >60 (60-); Glucose, Blood 107 mg/dL (70-99); Phosphorus, Blood 4.3 mg/dL (2.5-4.9); Potassium, Blood 3.6 mmol/L (3.5-5.5); Sodium, Blood 139 mmol/L (136-145)
--- NOTE | 2019-02-13 07:05 | NUR ---
ASSUMED CARE: RECEIVED REPORT FROM NOC RN. PT SITTING UP ON BED HOLDING HEAD IN HIS HAND APPEARS TO HAVE A HEAD ACHE, PT DENIES NEED FOR MEDICATION. PT EDUCATED ON REBOUND PAIN FROM TYLENOL. WILL CONTINUE TO MONITOR AND ASSESS FURTHER.
--- NOTE | 2019-02-13 07:07 | NUR ---
PT HAS COMPLAINT THIS AM OF CHEST PAIN WHICH HE RATES 5/10 ALSO RADIATING TO NECK. TWO DOSES OF NITRO TABS GIVEN WHICH PT STATES RELIEVED PAIN COMPLETELY. VSS REMAIN STABLE.
--- NOTE | 2019-02-13 08:45 | NUR ---
CHEST PAIN: FAMILY NOTIFIES THIS RN OF PT HAVING CHEST PAIN. PT STATES PAIN 5/10 RADIATING UP HIS CHEST TO HIS SHOLDERS AND INTO HIS BACK. NITRO SUBLINGUAL GIVEN TO PT AFTER APPROX 15MIN PT STATES PAIN OF 1/10, ADMINISTERED ANOTHER NITRO SUBLINGUAL AND ADMINISTERED AM PO MEDICATION OF IMDUR. PT EDUCATED ON STRESS REDUCTION. VSS AT THIS TIME. DR HUMPHREY NOTIFIED.
--- NOTE | 2019-02-13 09:51 | NUR ---
UPDATE: PT DENIES CHEST PAIN AND STATES WAS RESOLVED TO 0/10 WITH THE [address] HUMPHREY IN TO SEE PT. EDUCATES PT ON SOME DIFFERENCES OF HEART RELATED CHEST PAIN AND GI RELATED CHEST PAIN. DR FRAGOSO IN TO SEE PT WHILE DR HUMPHREY IS IN THE ROOM. REVIEWED MEDICATIONS AND I/O WITH HER. REVIEWED THE NIGHTS EVENTS WITH BLOOD PRESSURE AND CHEST PAIN EPPISODES WITH BOTH DR FRAGOSO AND DR HUMPRHEY.
--- NOTE | 2019-02-13 11:52 | NUR ---
FEELING POOR: RECEIVED REPORT FROM PCT PT WAS NOT READY FOR A SHOWER DO TO FEELING VERY WEAK. HAVING TUNNEL VISION LIGHT HEADED AND JUST FEELING "PUNY". BLOOD PRESSURE IS NOTED TO BE 101/61 WITH A MEAN OF 74.
--- NOTE | 2019-02-13 18:12 | NUR ---
ARRIVAL PT ARRIVED TO UNIT APPROX. 1750. PT A&OX4. PT ABLE TO TRANSFER ON OWN FROM WHEELCHAIR TO BED. PEER STAFF ASSISTED PT WITH GETTING SETTLED IN BED. PT ABLE TO SIT UP AND HAVE DINNER AND TOLERATED WELL. PT DENIES ANY PAIN OR CHEST DISCOMFORT. PT REPORTS FEELING GOOD OVERALL. FAMILY AT BEDSIDE. BED IN LOW POSITION, CALL LIGHT IN REACH AND PT DENIES ANY NEEDS. WILL CONTINUE TO MONITOR UNTIL HANDOFF TO NIGHTSHIFT RN.
--- NOTE | 2019-02-13 20:30 | NUR ---
CHEST PAIN PT HAD AN EPISODE OF CP AT 2014. PT WAS GIVEN 1 TAB OF NITRO SUBLINGUAL. PT REPORTED CP REDUCED QUICKLY. DID REPORT SOME "FUZZINESS" TO VISION, BUT PAIN WAS NOW ALMOST ALL GONE. PT REPORTED PAIN WAS 9/10. VITALS TAKEN AND STABLE AT THIS TIME. PER TELE PT REMINED IN NSR DURING EPISODE. PT EDUCATED ON USING APPROPRIATE BUTTON TRAM OPERATOR LIGHT TO CALL RN IF CP RETURNS TO ENSURE QUICK RESPONSE.
[2019-02-14 04:31] LABS: Anion Gap 9 mmol/L (6-16); Blood Urea Nitrogen 15 mg/dL (8-24); Bun/Creatinine Ratio 15.1 (12.0-20.0); CO2, Blood 27 mmol/L (21-32); Calcium, Blood 8.6 mg/dL (8.5-10.1); Chloride, Blood 101 mmol/L (98-108); Creatinine, Blood 0.99 mg/dL (0.60-1.20); Glomerular Filtration Rate >60 (60-); Glucose, Blood 114 mg/dL (70-99); Phosphorus, Blood 3.7 mg/dL (2.5-4.9); Potassium, Blood 3.6 mmol/L (3.5-5.5); Sodium, Blood 137 mmol/L (136-145)
--- NOTE | 2019-02-14 04:53 | NUR ---
SHIFT SUMMARY PT RESTING IN ROOM COMFORTABLY AT THIS TIME. PT HAD NO ACUTE CHANGES IN STATUS T/O NIGHT. ONE EPISODE OF CP WAS RESOLVED W/ MED PER EMAR, SEE PREVIOUS NOTES. PT DID NOT SLEEP WELL, REPORTED WAKING UP GASPING FOR BREATH, PT REPORTS FEELING "LIKE I WAS SNORING AND JUST DIDN'T GET ENOUGH BREATH". 2L NC WAS PLACED ON PT FOR COMFORT. PT WAS ABLE TO SLEEP BETTER AFTER THIS. RESP EVEN UNLABORED ON 2L NC W/ SATS <95%. DENIES NEEDS. CALL LIGHT IN REACH.
--- NOTE | 2019-02-14 17:17 | NUR ---
SHIFT SUMMARY PT PLEASANT, COOPERATIVE AND USES CALL LIGHT APPROPRIATELY. PT REMAINS A&OX4. ASSESSMENT COMPLETED. VITAL SIGNS REMAIN STABLE. PT HAD TWO EPISODES OF CHEST PAIN THAT WAS RELIEVED BY NITRO. PT ABLE TO AMBUALTE AROUND ROOM AND UNIT AND TOLERATED WELL. PT REPORTS THAT THE DIZZINESS PREVIOUSLY FELT IS GONE. HE REPORTS HE IS FEELING GOOD. DISCUSSED WITH PT ABOUT TAKING MEDICATIONS AND IMPORTANCE OF EACH MEDICATION. PT REPORTS HAVING A GOOD APPETITE AND ABLE TO EAT AT EACH MEAL. PT IN BED AT THIS TIME. CALL LIGHT IN REACH AND PT DENIES ANY NEEDS. WILL CONTINUE TO MONITOR UNTIL HANDOFF TO NIGHTSHIFT RN.
--- NOTE | 2019-02-14 22:20 | NUR ---
ASSUMED CARE OF PATIENT AT APPROXIMATELY 1915 FROM ROD Abdi RN. PATIENT ALERT AND ORIENTED X4; INDEPENDENT IN ROOM. PATIENT DENIES CP/PRESSURE, DIZZINESS, LIGHTHEADEDNESS OR NAUSEA. PATIENT TO CALL IF ANY SYPMTOMS OCCUR. AT BEDSIDE FOR A FEW HOURS AFTER SHIFT CHANGE. SON STOPPED BY. PATIENT INITIALLY REPORTED HE WAS GOING TO GO ON HIS THIRD WALK BUT LATER DECIDED AGAINST IT. NSR ON TELE; OXYGEN SATURATION ABOVE 90% ON ROOM AIR; ON CONTINUOUS PULSE OXIMETRY TONIGHT PER REQUEST OF ECONOMIC RESEARCH ANALYST. 2X PIV S/L. PATIENT CURRENTLY RESTING IN BED; CALL LIGHT IN REACH; BED IN LOWEST POSISTION; WILL CONTINUE TO MONITOR AND ASSESS UNTIL END SHIFT.
[2019-02-15 04:47] LABS: Albumin, Blood 3.1 g/dL (3.4-5.0); Anion Gap 8 mmol/L (6-16); Blood Urea Nitrogen 16 mg/dL (8-24); Bun/Creatinine Ratio 15.2 (12.0-20.0); CO2, Blood 29 mmol/L (21-32); Calcium, Blood 8.7 mg/dL (8.5-10.1); Chloride, Blood 102 mmol/L (98-108); Creatinine, Blood 1.05 mg/dL (0.60-1.20); Glomerular Filtration Rate >60 (60-); Glucose, Blood 101 mg/dL (70-99); Phosphorus, Blood 3.4 mg/dL (2.5-4.9); Potassium, Blood 3.4 mmol/L (3.5-5.5); Sodium, Blood 139 mmol/L (136-145)
--- NOTE | 2019-02-15 06:13 | NUR ---
PATIENT REPORTS HE HAD A SMALL BM; REPORTS SOME CHEST DISCOMFORT 2/10 LASTED ABOUT A MINUTE BUT DID NOT TELL STAFF. REPORTS FEELS BETTER.
--- NOTE | 2019-02-15 06:32 | NUR ---
PATIENT SLEPT ABOUT SEVEN HOURS LAST NIGHT. PATIENT REPORTS THAT HE WOKE UP FREQUENTLY ANXIOUS AND NEEDED TO TAKE FOUR BREATHS BEFORE HE FELT BETTER. OXGYEN SATURATION ABOVE 90% ON ROOM AIR ALL NIGHT. NO OTHER ACUTE CHANGES TO REPORT. ONE EPISODE OF CHEST DISCOMFORT; SEE PREVIOUS NOTES. WILL CONTINUE TO MONITOR AND ASSESS UNTIL END OF SHIFT.
--- NOTE | 2019-02-15 10:00 | NUR ---
PCU DAYSHIFT ASSUMED CARE OF PT APPROX. 0700. PT A&OX4. ASSESSMENT COMPLETED. VITAL SIGNS STABLE. BLOOD PRESSURE SLIGHTLY ELEVATED. WILL GIVE MORNING MEDICATIONS AND RECHECK THIS. PT REPROTS FEELING "REALLY GOOD" THIS MORNING. HE SAID EACH DAY HE FEELS BETTER AND BETTER. PT ABLE TO TAKE A SHOWER THIS MORNING AND TOLERATED WELL. PT DENIES ANY DIZZINESS OR LGITHHEADNESS THIS MORNING OR T/O THE NIGHT. PMD IN TO SEE PT THIS MORNING AND STATES POSSIBLE DISCHARGE TODAY. PT CAN BEGIN TO ADVANCE DIET TOLERATED PER PMD BED IN LOW POSITION, CALL LIGHT IN REACH AND PT DENIES ANY NEEDS. FAMILY AT BEDSIDE. WILL CONTINUE TO MONITOR
--- NOTE | 2019-02-15 10:40 | NUR ---
NOTE RECIEVED DISCHARGE ORDERS FROM PMD. WILL BEGIN COMEPLETING DISCHARGE PROCESS. AND PRINT OUT ANY NEEDED EDUCATION INFORMATION. WILL CALL [employer] TO PREFERED PHARMACY
[2019-02-15] MEDS ORDERED: Pacerone400 MG PO (11:21)
[2019-02-15] MEDS ORDERED: CARV6.25 PO (11:23)
[2019-02-15] MEDS ORDERED: FURO40 PO (11:23)
[2019-02-15] MEDS ORDERED: LORA1 PO (11:24)
[2019-02-15] MEDS ORDERED: SPIR25 PO (11:26)
[2019-02-15] MEDS ORDERED: ENTRESTO 24 MG1 EACH PO (11:26)
[2019-02-15] MEDS ORDERED: POTA10T PO (11:27)
--- NOTE | 2019-02-15 13:31 | NUR ---
DISCHARGE DISCHARGE PROCESS COMPELTED. MEDICAITONS CALLED TO PHARMACY. REVIEWED DISCHARGE WITH PT AND FAMILY. ANSWERED QUESTIONS. PT AND FAMILY EXIHIBIT KNOWLEDGE. REMOVED IV'S. PT ESCORTED BY PEER STAFF TO AUTOMOBILE. NO S/SX OF ACUTE DISTRESS
== END 2019-02-15 13:30 | disposition home or self-care (01) | DRG 368 ==
LOC: ER 16:50 → ICUW 16:51 → PCU 02-13 17:52
PROVIDERS: Emergency Medicine; ADMIT Internal Medicine
DX: K22.6 Gastro-esophageal laceration-hemorrhage syndrome (principal); I21.3 ST elevation (STEMI) myocardial infarction of unspecified site; E87.1 Hypo-osmolality and hyponatremia; I50.42 Chronic combined systolic (congestive) and diastolic (congestive) heart failure; Z95.5 Presence of coronary angioplasty implant and graft; K21.9 Gastro-esophageal reflux disease without esophagitis; I48.0 Paroxysmal atrial fibrillation; I25.5 Ischemic cardiomyopathy; F17.210 Nicotine dependence, cigarettes, uncomplicated; I11.0 Hypertensive heart disease with heart failure; F41.9 Anxiety disorder, unspecified; I72.9 Aneurysm of unspecified site; I25.41 Coronary artery aneurysm; I25.119 Atherosclerotic heart disease of native coronary artery with unspecified angina pectoris
CPT/HCPCS: 36415; 71045; 80047; 80048; 80053; 80069; 82550; 82553; 83735; 84100; 84484; 85014; 85025; 85027; 93005; 93010; 96360; 96361; 96374; 99285-25; A9270; A9270-GY; G0378; J1940; J7030